=== PATIENT | female | born 1940 | race Caucasian/White ===

== ENCOUNTER 2017-07-20 21:00 | Emergency (ER) | payer MEDICARE, BC ==
[~2017-07-20] VITALS: Ht 149.9 cm; Wt 44.0 kg
[2017-07-20 21:08] VITALS: BP 151/68; PULSE 95; RESP 18; TEMP 98.4; O2SAT 99
[2017-07-20] MEDS ORDERED: FOSA70TA PO (21:57)
[2017-07-20 22:05] VITALS: BP 146/67; PULSE 80; RESP 23; O2SAT 98
--- NOTE | 2017-07-20 22:49 | RADRPT ---
EXAM DATE/TIME: 07/20/2017 22:27 [facility] COMPARISON: No previous studies available for comparison. INDICATIONS : Left flank iliac wing pain from a fall. MEDICAL HISTORY : None. SURGICAL HISTORY : None. ENCOUNTER: Initial ACUITY: 1 day PAIN SCORE: 8/10 LOCATION: Left pelvis FINDINGS: A single frontal view of the pelvis demonstrates no evidence of fracture. The bony pelvic ring is in tact. Bony mineralization is normal. The soft tissues are intact. 3.2 cm nonspecific but most likely benign sclerotic focus of the right iliac bone in the supra-acetab ular region. CONCLUSION: No evidence of pelvic fracture. Patricio Hazle MD on July 20, 2017 at 22:46 Board Certified Radiologist. This report was verified electronically.
--- NOTE | 2017-07-20 22:50 | RADRPT ---
EXAM DATE/TIME: 07/20/2017 22:29 [facility] COMPARISON: No previous studies available for comparison. INDICATIONS : Left flank and muscle pain of the left leg post fall on an ambulatory patient. MEDICAL HISTORY : None. SURGICAL HISTORY : None. ENCOUNTER: Initial ACUITY: 1 day PAIN SCORE: 3/10 LOCATION: Left lateral leg FINDINGS: Two view examination of the left femur demonstrates no evidence of fracture or dislocation. Bony min eralization is normal. The soft tissue structures are intact. CONCLUSION: Intact left femur. Patricio Hazel MD on July 20, 2017 at 22:47 Board Certified Radiologist. This report was verified electronically.
--- NOTE | 2017-07-21 00:20 | PD ---
HPI Chief Complaint: Fall Time Seen by Provider: 22:11 Travel History International Travel<30 days: No Contact w/Intl Traveler<30days: No Traveled to known affect area: No History of Present Illness HPI Patient is a 77-year-old female who comes in complaining of left hip pain after she was knocked over by a horse. She says she felt the horse treat and then it got "frisky" and must of knocked her over. Her daughter says that she heard her call for her in she looked out and saw her on her hands and knees. Patient says she does not remember the event. She has been walking on her leg since the event. It happened this afternoon. She did take Tylenol prior to coming in , which she says she is not sure if it helped. She says she thinks she hit her the front of her head, but she did not lose consciousness. She denies any pain to her chest or abdomen, any shortness of breath. She says she was in her normal state of health prior to the injury. Severity is mild to moderate. PFSH Past Medical History Cancer: Yes (HX BREAST CANCER - LUMPECTOMY) Diminished Hearing: No Immunizations Current: Yes Radiation Therapy: Yes (HX - 2010) Past Surgical History Gynecologic Surgery: Yes (LEFT LUMPECTOMY) Other Surgery: Yes (THYROID) Social History Alcohol Use: No Tobacco Use: No Substance Use: No Allergies-Medications (Allergen,Severity, Reaction): Coded Allergies: latex (Verified Allergy, Mild, 07/20/17) Reported Meds & Prescriptions Reported Meds & Active Scripts Active Reported Fosamax (Alendronate Sodium) 70 Mg Tab 35 Mg PO Q7D Review of Systems Except as stated in HPI: all other systems reviewed are Neg General / Constitutional: No: Fever, Chills Eyes: No: Blurred Vision HENT: No: Headaches Cardiovascular: No: Chest Pain or Discomfort Respiratory: No: Shortness of Breath Gastrointestinal: No: Nausea, Vomiting, Abdominal Pain Musculoskeletal: Positive: Pain Skin: No Rash Neurologic: No: Weakness, Dizziness Physical Exam Narrative GENERAL: Awake and alert, in no acute distress. SKIN: Focused skin assessment warm/dry. Small area of ecchymosis above the left hip. HEAD: Atraumatic. Normocephalic. EYES: Pupils equal and round and reactive. No scleral icterus. Extraocular movements intact. ENT: Mucous membranes pink and moist. NECK: Trachea midline. No JVD. CARDIOVASCULAR: Regular rate and rhythm. No murmur appreciated. RESPIRATORY: No accessory muscle use. Clear to auscultation. Breath sounds equal bilaterally. GASTROINTESTINAL: Abdomen soft, non-tender, nondistended. MUSCULOSKELETAL: No obvious deformities. No clubbing. No cyanosis. No edema. No tenderness to palpation of the spine. Mild tenderness to palpation of the left hip. Full range of motion of the legs. NEUROLOGICAL: Awake and alert. No obvious cranial nerve deficits. Motor grossly within normal limits. Normal speech. PSYCHIATRIC: Appropriate mood and affect; insight and judgment normal. Data Data Last Documented VS Vital Signs Date Time Temp Pulse Resp B/P (MAP) Pulse Ox O2 Delivery O2 Flow Rate FiO2 07/20/17 22:05 80 23 146/67 (93) 98 Room Air 07/20/17 21:[address] Brain W/O Iv Contrast(Rout) (07/20/17 ) Pelvis, Ap Only (Routine) (07/20/17 ) Femur (Ap & Lat/2vws) (07/20/17 ) MDM Medical Decision Making Medical Screen Exam Complete: Yes Emergency Medical Condition: Yes Differential Diagnosis Pelvic fracture versus hip fracture versus head injury Narrative Course Patient is a 77 year old female who comes in complaining of left hip pain after a horse knocked her over. Exam shows a small area of ecchymosis. X-ray of the pelvis and the femur performed show no acute abnormalities. Patient declined any pain medicine. CT head shows no acute abnormalities. Last 24 hours Impressions Pelvis X-Ray 07/20/17 0000 Signed Impressions: Service Date/Time: Thursday, July 20, 2017 22:27 - CONCLUSION: No evidence of pelvic fracture. Patricio Hazel MD Head CT 07/20/17 0000 Signed Impressions: Service Date/Time: Friday, July 21, 2017 00:24 - CONCLUSION: No acute disease. Abilio Zhong MD Femur X-Ray 07/20/17 0000 Signed Impressions: Service Date/Time: Thursday, July 20, 2017 22:29 - CONCLUSION: Intact left femur. Patricio Hazel MD Patient reassured. Advised to rest and follow up with her doctor. Advised to take Tylenol as needed for pain. Advised to return to the ED as needed for any worsening symptoms. Diagnosis Primary Impression: Hip pain Qualified Codes: M25.552 - Pain in left hip Additional Impression: Head injury Qualified Codes: S09.90XA - Unspecified injury of head, initial encounter Patient Instructions: General Instructions, Head Injury (ED), Hip Pain (ED) Additional Instructions: Take Tylenol as needed for pain. Follow-up with your doctor. Return to the ED as needed for any worsening symptoms. Disposition: 01 DISCHARGE HOME Condition: Stable Kelley Amezquita MD Jul 21, 2017 00:20
--- NOTE | 2017-07-21 00:34 | RADRPT ---
EXAM DATE/TIME: 07/21/2017 00:24 [facility] COMPARISON: No previous studies available for comparison. INDICATIONS : Knocked by a horse. RADIATION DOSE: 24.82 CTDIvol (mGy) MEDICAL HISTORY : Carcinoma, breast. SURGICAL HISTORY : None. ENCOUNTER: Initial ACUITY: 1 day PAIN SCALE: 5/10 LOCATION: cranial TECHNIQUE: Multiple contiguous axial images were obtained of the head. Using automated exposure control and adj ustment of the mA and/or kV according to patient size, radiation dose was kept as low as reasonably a chievable to obtain optimal diagnostic quality images. DICOM format image data is available electro nically for review and comparison. FINDINGS: CEREBRUM: The ventricles are normal for age. No evidence of midline shift, mass lesion, hemorrhage or acute in farction. No extra-axial fluid collections are seen. POSTERIOR FOSSA: The cerebellum and brainstem are intact. The 4th ventricle is midline. The cerebellopontine angle i s unremarkable. EXTRACRANIAL: The visualized portion of the orbits is intact. SKULL: The calvaria is intact. No evidence of skull fracture. CONCLUSION: No acute disease. Abilio Zhong MD on July 21, 2017 at 0:32 Board Certified Radiologist. This report was verified electronically.
[2017-07-21 01:19] VITALS: BP 142/65; PULSE 79; RESP 17; O2SAT 96
== END 2017-07-21 01:20 | disposition home or self-care (01) ==
LOC: NEPC 21:00
DX: M25.552 Pain in left hip (principal); S09.90XA Unspecified injury of head, initial encounter; W55.12XA Struck by horse, initial encounter
CPT/HCPCS: 70450; 72170; 73552